=== PATIENT | female | born 1955 | race Caucasian/White ===

== ENCOUNTER → 2023-12-20 11:34 | Outpatient (REF) | payer MEDICARE, SELFPAY | LOC: WDC 11:34 | PROVIDERS: ATTENDING PHYSICIAN Obstetrics & Gynecology Gynecology; FAMILY PHYSICIAN Family Medicine; REFERRING PHYSICIAN Internal Medicine Rheumatology | DX: Z12.31 Encounter for screening mammogram for malignant neoplasm of breast (principal); M51.9 Unspecified thoracic, thoracolumbar and lumbosacral intervertebral disc disorder | CPT/HCPCS: 73130; 73630; 77063; 77067 ==

== ENCOUNTER → 2024-06-04 06:37 | Outpatient (REF) | payer MEDICARE, SELFPAY | LOC: MRI 06:37 | PROVIDERS: ATTENDING PHYSICIAN Orthopaedic Surgery; FAMILY PHYSICIAN Family Medicine | DX: M54.16 Radiculopathy, lumbar region (principal); M79.18 Myalgia, other site; M47.816 Spondylosis without myelopathy or radiculopathy, lumbar region | CPT/HCPCS: 72148 ==

== ENCOUNTER → 2025-02-18 17:23 | Outpatient (REF) | payer MEDICARE, SELFPAY | LOC: WDC 17:23 | PROVIDERS: ATTENDING PHYSICIAN Obstetrics & Gynecology Gynecology; FAMILY PHYSICIAN Family Medicine | DX: Z12.39 Encounter for other screening for malignant neoplasm of breast (principal); Z12.31 Encounter for screening mammogram for malignant neoplasm of breast | CPT/HCPCS: 77063; 77067 ==

== ENCOUNTER 2025-03-22 00:10 | Emergency (ER) | payer MEDICARE, SELFPAY ==
[2025-03-22] VITALS (8 sets, daily range): BP systolic 140–185; BP diastolic 72–100; BMI 26.4
[2025-03-22 00:50] LABS: % Basophils 0.2 % (0-2); % Eosinophils 0.2 % (0-6); % Immature Granulocytes 0.4 % (0-0.5); % Lymphocytes 22.3 % (20.5-51.1); % Neutrophils 70.9 % (42.2-75.2); Absolute Immature Granulocytes 0.1 10^3/uL (0-0.05); Absolute Lymphocytes 2.6 10^3/uL (1.2-3.4); Absolute Monocytes 0.7 10^3/uL (0.1-0.6); Absolute Neutrophils 8.3 10^3/uL (1.4-6.5); Hematocrit 35.9 % (37.0-47.0); Hemoglobin 13.1 g/dL (12.0-16.0); Mean Corp Hgb Conc. 36.5 g/dL (33.0-37.0); Mean Corpuscular Volume 82.2 fL (81.0-99.0); Mean Platelet Volume 9.3 fL (7.4-10.4); Nucleated Red Blood Cells % 0 %; Platelet Count 368 10^3/uL (130-400); Red Blood Cell Count 4.37 10^6/uL (4.20-5.40); Red Cell Dist. Width 13.5 % (11.5-14.5); White Blood Cell Count 11.7 10^3/uL (4.8-10.8)
[2025-03-22 01:04] LABS: ALT (SGPT) 15 U/L (0-35); AST (SGOT) 18 U/L (14-36); Alkaline Phosphatase 51 U/L (38-126); Blood Urea Nitrogen 9 mg/dl (7-17); Calcium 9.5 mg/dl (8.4-10.2); Carbon Dioxide 23 mmol/L (22-30); Chloride 92 mmol/L (98-107); Glucose 163 mg/dl (70-99); Potassium 3.8 mmol/L (3.5-5.1); Sodium 125 mmol/L (135-145); Total Bilirubin 1.4 mg/dl (0.2-1.3); Total Protein 6.5 g/dl (6.3-8.2); eGFR > 60.00
[2025-03-22] MEDS: NSS 1000 IV (02:40)
[2025-03-22 03:19] LABS: Lipase 143 U/L (23-300)
[2025-03-22 03:41] LABS: Urine Albumin Negative (Neg - Trace); Urine Bilirubin Negative (Negative); Urine Character Clear (Clear); Urine Color Yellow; Urine Glucose Negative (Negative); Urine Ketone 2+ (Negative); Urine Leukocyte Negative (Negative); Urine Nitrite Negative (Negative); Urine Occult Blood Negative (Negative); Urine Specific Gravity 1.015 (<1.030); Urine Urobilinogen Negative (Neg - 1+)
--- NOTE | 2025-03-22 04:25 | ED.GENMED ---
History of Present Illness
<ROSA Guerrero - Last Filed: 03/22/25 05:05>
General
Chief Complaint: Abdominal Symptoms
Source: patient and spouse
Exam Limitations: none
Time Seen by Provider: 03/22/25 03:39
History of Present Illness
History of Present Illness:
Pt is a 69 yo F, s/p R TKA (03/15/2025) with a PMH of HLD, GERD, and seasonal allergies who presents to the ER c/o nausea, vomiting, and dizziness x 1 day. Patient states she stopped taking her oxycodone for pain, last dose was 2:30 am on 03/20/2025,
and has been increasingly nauseous, has vomited repeatedly, and is feeling dizzy. Patient states she is unable to keep anything down, including her Zofran which she states is not helping. She explains that she usually has this type of reaction when
having gone under general anesthesia, but has never had anything like this outside of those instances immediately following general anesthesia. She has tried TUMS, latasha zaida, a latasha chew, and pedialyte without improvement. Patient feels she is
unable to take anything by mouth at this point. Her other medications prescribed following surgery include: tylenol, celebrex, zofran, and aspirin. She completed a 3-day course of decadron as well. She has had varying bowel movements, most recently
a hard stool yesterday. Right now, she states the pain in her knee is a 5/10. She denies fever, PEDERSON, sick contacts, sore throat, congestion, or other associated symptoms.
Review of Systems
<ROSA Guerrero - Last Filed: 03/22/25 05:05>
Review of Systems
All Other Systems: ROS reviewed and negative except as documented in HPI and ROS
Phy Exam
<ROSA Guerrero - Last Filed: 03/22/25 05:05>
General Physical Exam
General Presentation: well appearing
General age: appears stated age
Cardiovascular Exam
Cardiovascular Exam: regular rate/rhythm
Pulmonary Exam
Pulmonary Exam: lungs clear
Gastrointestinal Exam
Gastrointestinal Exam: normal bowel sounds, non tender and soft
Course
<Kalli Grace [facility] - Last Filed: 03/22/25 05:05>
Orders/Labs/Results
Orders:
Orders
03/22/25 00:42
CMP [Comprehensive Metabolic Panel] Urgent
Complete Blood Count/With Diff Urgent
Lipase Urgent
Comment: ADD ON
03/22/25 02:39
0.9% Sodium Chloride 1000 ml [Nss] 1,000 ml IV BOLUS
03/22/25 02:41
Add On- LAB Urgent
Tests Added?: lipase
03/22/25 02:57
CT Abd/Pel (IV only)-[facility] only Urgent
Comment:
Reason For Exam: abd pain, vomiting, constipation
03/22/25 03:28
Urinalysis Reflex To Culture Urgent
Date Specimen was Collected: 03/22/25
Time Specimen was Collected: 02:58
03/22/25 04:45
Metoclopramide [Reglan] 10 mg IV NOW STA
diazePAM [Valium Injection] 2 mg IV NOW STA
03/22/25 05:59
Diphenhydramine [Benadryl] 25 mg IV NOW STA
Meclizine [Antivert] 25 mg PO NOW STA
Abnormal Lab Results
03/22/25 03/22/25
00:42 03:28
WBC 11.7 H 10^3/uL
(4.8-10.8)
Hct 35.9 L %
(37.0-47.0)
Abs Immat Gran (auto) 0.1 H 10^3/uL
(0-0.05)
Absolute Neuts (auto) 8.3 H 10^3/uL
(1.4-6.5)
Absolute Monos (auto) 0.7 H 10^3/uL
(0.1-0.6)
Sodium 125 L mmol/L
(135-145)
Chloride 92 L mmol/L
(98-107)
Glucose 163 H mg/dl
(70-99)
Total Bilirubin 1.4 H mg/dl
(0.2-1.3)
Urine Ketones 2+ A
(Negative)
03/22/25 00:42
03/22/25 00:42
Vital Signs
Initial and Last Documented VS:
Initial Vital Signs
Temp Pulse Resp BP Pulse Ox
97.7 F 86 18 184/100 98
03/22/25 00:30 03/22/25 00:30 03/22/25 00:30 03/22/25 00:30 03/22/25 00:30
Last Documented Vital Signs
Temp Pulse Resp BP Pulse Ox
98.1 F 77 15 140/79 95
03/22/25 02:32 03/22/25 07:00 03/22/25 07:00 03/22/25 07:00 03/22/25 06:45
<Ghazala Hunter, DO - Last Filed: 03/22/25 07:27>
Orders/Labs/Results
Orders:
Orders
03/22/25 00:42
CMP [Comprehensive Metabolic Panel] Urgent
Complete Blood Count/With Diff Urgent
Lipase Urgent
Comment: ADD ON
03/22/25 02:39
0.9% Sodium Chloride 1000 ml [Nss] 1,000 ml IV BOLUS
03/22/25 02:41
Add On- LAB Urgent
Tests Added?: lipase
03/22/25 02:57
CT Abd/Pel (IV only)-[facility] only Urgent
Comment:
Reason For Exam: abd pain, vomiting, constipation
03/22/25 03:28
Urinalysis Reflex To Culture Urgent
Date Specimen was Collected: 03/22/25
Time Specimen was Collected: 02:58
03/22/25 04:45
Metoclopramide [Reglan] 10 mg IV NOW STA
diazePAM [Valium Injection] 2 mg IV NOW STA
03/22/25 05:59
Diphenhydramine [Benadryl] 25 mg IV NOW STA
Meclizine [Antivert] 25 mg PO NOW STA
Abnormal Lab Results
03/22/25 03/22/25
00:42 03:28
WBC 11.7 H 10^3/uL
(4.8-10.8)
Hct 35.9 L %
(37.0-47.0)
Abs Immat Gran (auto) 0.1 H 10^3/uL
(0-0.05)
Absolute Neuts (auto) 8.3 H 10^3/uL
(1.4-6.5)
Absolute Monos (auto) 0.7 H 10^3/uL
(0.1-0.6)
Sodium 125 L mmol/L
(135-145)
Chloride 92 L mmol/L
(98-107)
Glucose 163 H mg/dl
(70-99)
Total Bilirubin 1.4 H mg/dl
(0.2-1.3)
Urine Ketones 2+ A
(Negative)
03/22/25 00:42
03/22/25 00:42
Vital Signs
Initial and Last Documented VS:
Initial Vital Signs
Temp Pulse Resp BP Pulse Ox
97.7 F 86 18 184/100 98
03/22/25 00:30 03/22/25 00:30 03/22/25 00:30 03/22/25 00:30 03/22/25 00:30
Last Documented Vital Signs
Temp Pulse Resp BP Pulse Ox
98.1 F 77 15 140/79 95
03/22/25 02:32 03/22/25 07:00 03/22/25 07:00 03/22/25 07:00 03/22/25 06:45
<ROSA Guerrero - Last Filed: 03/22/25 05:05>
*Critical Care Note
Total Time (30-74mins, 75-104mins- exclusive of procedures): Not Applicable
<Ghazala Hunter DO - Last Filed: 03/22/25 07:27>
*Radiology
Radiology exam reviewed: radiology read reviewed (CT abdomen pelvis unremarkable save for an element of constipation.)
*Pulse Oximetry
Patient hypoxic: no
*Manager Maintenance Interpretation
Rate: normal
Interpretation: normal
Rhythm: sinus
ED Attending Note
<ROSA Guerrero - Last Filed: 03/22/25 05:05>
-
Portions of this chart may have been created with voice recognition software.� Occasional wrong word or��sound alike� substitutions may have occurred due to the inherent limitations of voice recognition software.
<Ghazala Hunter DO - Last Filed: 03/22/25 07:27>
ED Attending Note
Patient seen and examined by attending physician: Yes
I performed the substantive portion of visit, reviewed & personally made and approve the management plan that is documented in note by myself or TIAGO.: Yes
ED Attending Note:
This is a 69-year-old woman who underwent right total knee replacement 1 week ago. She was placed on short course of Decadron, oxycodone, Celebrex. While taking the oxycodone she had been taking a fair amount of Senokot, stool softeners and admits
to moderate diarrhea throughout the day on Saturday, 5 days ago. She took 1 Imodium Saturday night and has had no further diarrhea and in fact did not pass a bowel movement until passing a hard stool yesterday. She went to physical therapy on
Saturday and again on Saturday but admits to not feeling well on Saturday with some dizziness and nausea. Dizziness and nausea worsened yesterday with onset of vomiting multiple times throughout the day yesterday. She has taken Zofran a few times
without relief. Dizziness seems worse with position change. No associated headache, no chest pain, no palpitations. She denies abdominal pain. She has not had a fever nor chills. She stopped the oxycodone yesterday morning. Her knee has been
feeling well, less swelling, ambulating without difficulty.
69-year-old woman appears her stated age. Awake and alert, minimally ill in appearance. Easily communicative. Moderate hypertension noted initially. Improving. Afebrile.
HEENT: Oral mucosa is moist. No rhinorrhea. EXTR ocular muscles intact with mild left lateral gaze nystagmus. Test of skew is negative. Head impulse negative. Rapid rotation of the head worsens patient's dizziness.
Neck is supple, nontender.
Heart is regular rate and rhythm.
Lungs are clear to auscultation. No respiratory distress.
Abdomen is soft without appreciable tenderness. No palpable masses.
Extremities without clubbing or cyanosis nor edema. Right knee dressing is dry and intact. Minimal dark purple ecchymosis medial and lateral aspect of the knee. Minimal effusion. No palpable tenderness.
Neuro: Awake alert and oriented x 3. No focal neurodeficits. Mild worsening of dizziness with rapid rotation of the head.
History and exam concerning for positional vertigo, other consideration is gastroenteritis, dehydration, electrolyte abnormality, constipation.
Patient feeling somewhat improved after IV fluids.
As Zofran has been ineffective for nausea will trial an IV dose of Reglan as well as an IV dose of Valium.
Labs are remarkable for minimally elevated white blood cell count, moderate hyponatremia of 125, normal BUN and creatinine, mildly elevated glucose of 163. No acidosis on electrolytes.
CT abdomen pelvis is unremarkable save for an element of constipation. No bowel obstruction nor obstipation.
06:00
Patient feeling moderate improvement after IV Reglan and Valium. Nausea has resolved. Dizziness is markedly improved. She does note a feeling of restlessness which I suspect is related to Reglan. Will give an IV dose of Benadryl and trial an
oral dose of Antivert.
Will trial oral fluids.
07:20
Patient feeling markedly improved, resolution of dizziness as well as nausea. No further restlessness.
Tolerating oral fluids.
Will discharge to home with prescription for meclizine to be taken 4 times daily as needed for dizziness and nausea. If nausea persists I have also written a prescription for Reglan 5 mg tablets which she can take additionally for as needed nausea.
For constipation related to recent opioid prescription use recommend she take Metamucil versus MiraLAX on a daily basis over the next several days.
Recommend clear liquids, bland foods.
Prompt follow-up with PCP for recheck.
Discharge Plan
Departure
Patient Disposition: Home (Routine Discharge)
Date of Disposition: 03/22/25
Time of Disposition: 07:20
Patient with high blood pressure during this ER visit?: No
Condition: Good
Discharge Problem:
Acute nausea with nonbilious vomiting, acute positional vertigo, Acute hyponatremia, Constipation due to opioid therapy
Instructions: Vertigo (a type of dizziness), Clear Liquid Diet, Constipation, Adult (DC), Nausea and Vomiting, Adult (DC)
Prescriptions:
New
metoclopramide HCl [Reglan] 5 mg tablet
5 mg PO QIDPRN PRN (Reason: nausea and vomiting) Qty: 20 0RF
meclizine 25 mg tablet
25 mg PO QID PRN (Reason: dizziness, nausea) Qty: 20 0RF
Referrals:
Jm Valdez Jr. DO [Family Provider] - Call in 1-3 days for appt
Interventions
Interventions:
*Risk Screen - Suicide Last Done: 03/22/25 00:30
*General Assessment Last Done: 03/22/25 02:30
*Neglect/Abuse Screening Last Done: 03/22/25 00:30
*ED- Fall Risk Assessment Last Done: 03/22/25 02:30
*ED COVID-19 Vaccine History Last Done: 03/22/25 02:30
BH-Jtjnyk-Ezqllwgxia Assessment Last Done: 03/22/25 02:38
Discharge Date and Time
Print Language: FAROESE
[2025-03-22] MEDS: VALIUM INJECTION 2 MG IV (05:03)
[2025-03-22] MEDS: REGLAN 10 MG IV (05:03)
[2025-03-22] MEDS: ANTIVERT 25 MG PO (06:22)
[2025-03-22] MEDS: BENADRYL 25 MG IV (06:22)
--- NOTE | 2025-03-22 07:56 | EDRN ---
Reviewed discharge instructions with patient. Verbalized understanding. Taken to lobby in wheelchair.
== END 2025-03-22 07:35 | disposition home or self-care (01) ==
LOC: EMR 00:10
PROVIDERS: Physician Assistant; EMERGENCY PHYSICIAN Emergency Medicine; FAMILY PHYSICIAN Family Medicine
DX: R11.2 Nausea with vomiting, unspecified (principal); H81.10 Benign paroxysmal vertigo, unspecified ear; E87.1 Hypo-osmolality and hyponatremia; K59.00 Constipation, unspecified; E78.00 Pure hypercholesterolemia, unspecified; K21.9 Gastro-esophageal reflux disease without esophagitis; I10 Essential (primary) hypertension; T40.2X5A Adverse effect of other opioids, initial encounter; Y92.9 Unspecified place or not applicable; Z96.651 Presence of right artificial knee joint
CPT/HCPCS: 99284; 74177; 80053; 81003; 83690; 85025; Q9967